=== PATIENT | male | born 1985 | race Two or more races ===

== ENCOUNTER 2023-11-08 09:40 | Emergency (ER) | payer BC ==
[2023-11-08 09:47] VITALS: BP 120/86; PULSE 114; RESP 18; TEMP 98.3; BMI 30.2
[2023-11-08] MEDS ORDERED: KETOROLAC TROMETHAMINE 15 MG/ML VIAL ONE (10:04)
[2023-11-08] MEDS ORDERED: ACETAMINOPHEN INJECTION 100 ML IVPB ONE (10:04)
[2023-11-08] MEDS: DEXAMETHASONE SOD PHOSPHATE 10 MG/1 ML VIAL IVPUSH ONE (10:20)
[2023-11-08] MEDS ORDERED: DEXAMETHASONE SOD PHOSPHATE 10 MG/1 ML VIAL ONE (10:20)
[2023-11-08] MEDS: KETOROLAC TROMETHAMINE 15 MG/ML VIAL IVPUSH ONE (10:22)
[2023-11-08] MEDS: SODIUM CHLORIDE 1,000 ML IV ONE (10:27)
[2023-11-08] MEDS: ACETAMINOPHEN 1000 MG/100 ML BAG IVPB ONE (10:28)
[2023-11-08 11:23] LABS: HEMATOCRIT 47.2 % (35.4-49); HEMOGLOBIN 16.1 GM/dL (11.7-16.9); MCH 28.2 pg (25.7-33.7); MCHC 34.1 g/dl (32.0-35.9); MEAN CELL VOLUME 82.7 fl (80-96); MEAN PLT VOLUME 8.1 fl (7.5-11.1); PLATELET COUNT 380 10^3/uL (134-434); RDW 13.1 % (11.9-15.9); WHITE BLOOD COUNT 24.7 K/mm3 (4.0-10.0)
[2023-11-08 11:32] LABS: INR 1.16 (0.83-1.09); PROTHROMBIN TIME (PATIENT) 13.4 SEC (9.7-13.0)
[2023-11-08 11:35] LABS: ACTIVATED PTT 32.6 SECONDS (25.2-36.5)
[2023-11-08 11:58] LABS: POTASSIUM 4.5 mmol/L (3.5-5.1)
[2023-11-08 12:00] LABS: CALCIUM 9.6 mg/dL (8.5-10.1)
[2023-11-08 12:01] LABS: ALBUMIN 4.2 g/dl (3.4-5.0); BLOOD UREA NITROGEN 14.4 mg/dL (7-18)
[2023-11-08 12:02] LABS: ANISOCYTOSIS 0; MACROCYTOSIS 0
[2023-11-08 12:03] LABS: THROAT:GRP A STREP DETECTED (NOTDETECTED)
[2023-11-08 12:05] LABS: BILIRUBIN,TOTAL 0.8 mg/dL (0.2-1)
[2023-11-08 12:06] LABS: TOT PROT 8.5 g/dl (6.4-8.2)
[2023-11-08] MEDS ORDERED: CLINDAMYCIN 600MG PREMIX IVPB 600 MG/50 ML BAG IVPB ONE (13:03)
[2023-11-08] MEDS: CLINDAMYCIN 600MG PREMIX IVPB 600 MG/50 ML BAG IVPB ONE (13:07)
== END 2023-11-08 15:40 | disposition home or self-care (01) ==
LOC: JER 09:40
PROC: 3E03329 Introduction of Other Anti-infective into Peripheral Vein, Percutaneous Approach (ICD-10-PCS; principal; 2023-11-08)
PROC: 3E030NZ Introduction of Analgesics, Hypnotics, Sedatives into Peripheral Vein, Open Approach (ICD-10-PCS; 2023-11-08)
PROC: 3E030GC Introduction of Other Therapeutic Substance into Peripheral Vein, Open Approach (ICD-10-PCS; 2023-11-08)
PROC: 3E030GC Introduction of Other Therapeutic Substance into Peripheral Vein, Open Approach (ICD-10-PCS; 2023-11-08)
PROC: 3E0337Z Introduction of Electrolytic and Water Balance Substance into Peripheral Vein, Percutaneous Approach (ICD-10-PCS; 2023-11-08)
DX: J02.0 Streptococcal pharyngitis (principal); R00.0 Tachycardia, unspecified; R68.83 Chills (without fever); Z20.822 Contact with and (suspected) exposure to COVID-19
CPT/HCPCS: 0241U-QW; 36415; 70491-TC; 80053; 85025; 85610; 85730; 87070; 87077; 87651; 99285-25; J0131; J1100; Q9967